=== PATIENT | male | born 1945 | race Caucasian/White ===

== ENCOUNTER → 2020-10-15 | Outpatient (CLI) | payer OTHER | LOC: MRI 10:19 → EDBD 10:19 → MRI 11:00 | DX: H53.462 Homonymous bilateral field defects, left side (principal); I63.89 Other cerebral infarction | CPT/HCPCS: 36415; 70553; A9577 ==

== ENCOUNTER → 2020-11-04 | Outpatient (CLI) | payer OTHER | LOC: CT 09:39 → ECHO 11:00 | DX: I63.9 Cerebral infarction, unspecified (principal) | CPT/HCPCS: ECHO; 36415; 82565; 93306; Q9967 ==

== ENCOUNTER → 2020-11-06 | Outpatient (CLI) | payer OTHER | LOC: CT 14:23 | DX: I63.439 Cerebral infarction due to embolism of unspecified posterior cerebral artery (principal) | CPT/HCPCS: 70496; 70498; Q9967 ==

== ENCOUNTER → 2021-01-21 | Outpatient (CLI) | payer OTHER | LOC: KOH-I 14:13 | DX: Z87.891 Personal history of nicotine dependence (principal); M85.80 Other specified disorders of bone density and structure, unspecified site; R91.8 Other nonspecific abnormal finding of lung field; J84.9 Interstitial pulmonary disease, unspecified | CPT/HCPCS: 71271 ==

== ENCOUNTER → 2022-01-22 | Outpatient (CLI) | payer OTHER | LOC: KOH-I 08:00 | DX: K40.91 Unilateral inguinal hernia, without obstruction or gangrene, recurrent (principal); R19.03 Right lower quadrant abdominal swelling, mass and lump | CPT/HCPCS: 76882 ==